=== PATIENT | female | born 1950 | race Two or more races ===

== ENCOUNTER 2017-10-02 22:08 | Emergency (ER) | payer OTHER ==
[~2017-10-02] VITALS: Ht 154.9 cm; Wt 83.9 kg
[~2017-10-02 22:08] MED LIST: ASPI-498 PO; ATEN-60 PO; ATOR40TA52 PO; CLOP75TA28 PO; FLUO60TA PO; GABA300C10 PO; LIS5T PO; MIRT30TA PO; NITR0.4S29 SL
[2017-10-02 22:42] LABS: Basophils # (auto) 0 uL; Basophils % (auto) 0.4 % (0.0-2.0); Eosinophils # (auto) 0.1 uL; Eosinophils % (auto) 0.6 % (0.0-7.0); Hematocrit 34.3 % (36.0-46.0); Hemoglobin 11.6 g/dL (12.2-16.2); Lymphocytes # (auto) 2.7 uL; Lymphocytes % (auto) 31.9 % (10.0-50.0); Mean Corpuscular Hemoglobin 31.6 pg (28.0-32.0); Mean Corpuscular Hgb Conc. 33.8 g/dL (32.0-36.0); Mean Corpuscular Volume 93.2 fL (80.0-100.0); Monocytes # (auto) 0.5 uL; Monocytes % (auto) 5.8 % (0.0-12.0); Neutrophils # (auto) 5.1 uL; Neutrophils % (auto) 61.3 % (37.0-80.0); Nucleated Red Blood Cells % 0.1 %; Platelet Count (auto) 245 10^3/uL (140-450); Red Blood Cells 3.68 10^6/uL (4.0-5.20); Red Cell Distribution Width 12.1 % (11.8-14.3); White Blood Cell 8.3 10^3/uL (4.4-10.8)
[2017-10-02 23:02] LABS: Alanine Aminotransferase 37 U/L (13-56); Albumin 2.9 g/dL (3.4-5.0); Anion Gap 10 (5-15); Aspartate Aminotransferase 31 U/L (15-37); BUN/Creatinine Ratio 19.5; Blood Urea Nitrogen 29 mg/dL (7-18); Calcium 8.7 mg/dL (8.5-10.1); Carbon Dioxide 22 mmol/L (21-32); Chloride 103 mmol/L (98-107); GFR African American 45 mL/min; GFR Non-African American 37 mL/min; Magnesium 1.8 mg/dL (1.6-2.6); Potassium 4.1 mmol/L (3.5-5.1); Sodium 135 mmol/L (136-145)
[2017-10-02 23:03] LABS: Acetaminophen < 2.0 ug/mL (10-30); Salicylate < 1.7 mg/dL (2.8-20.0)
[2017-10-02 23:06] LABS: Alkaline Phosphatase 116 U/L (45-117); Bilirubin, Total 0.3 mg/dL (0.2-1.0); Total Protein 7.2 g/dL (6.4-8.2)
[2017-10-02 23:09] LABS: Glucose 457 mg/dL (74-106)
[2017-10-02] MEDS ORDERED: InsuLIN REG 1unit/0.01ml Soln (100units/ml) IV ONE (23:15)
[2017-10-03 00:14] LABS: Urine Bacteria FEW /hpf (None Seen); Urine Blood TRACE /uL (Negative); Urine Hyaline Cast FEW /lpf (0 - 2); Urine Mucus FEW (None Seen); Urine Specific Gravity 1.022 (1.001-1.035); Urine WBC 224 /hpf (0 - 5)
[2017-10-03 00:27] LABS: Alcohol, Urine < 3.0 mg/dL (0-5); Amphetamine Screen, Urine NEGATIVE (NEGATIVE); Barbiturate Scree,Urine NEGATIVE (NEGATIVE); Benzodiazephine Screen, Urine NEGATIVE (NEGATIVE); Cannabinoid Screen, Urine NEGATIVE (NEGATIVE); Cocaine Screen, Urine NEGATIVE (NEGATIVE); Opiate Scree,Urine NEGATIVE (NEGATIVE); Phencyclidine Screen, Urine NEGATIVE (NEGATIVE)
[2017-10-03] MEDS ORDERED: InsuLIN REG 1unit/0.01ml Soln (100units/ml) IV ONE (04:30)
[2017-10-03] MEDS ORDERED: SODIUM CHLORIDE 0.9% 1,000 ML IV ONE (05:00)
[2017-10-03 07:40] VITALS: BP 122/52
== END 2017-10-03 09:59 | disposition home or self-care (01) ==
LOC: ER 22:08 → EDBD 22:08 → ER 10-03 09:59
DX: E11.65 Type 2 diabetes mellitus with hyperglycemia (principal); N39.0 Urinary tract infection, site not specified; I25.10 Atherosclerotic heart disease of native coronary artery without angina pectoris; N18.9 Chronic kidney disease, unspecified; E11.22 Type 2 diabetes mellitus with diabetic chronic kidney disease; E78.5 Hyperlipidemia, unspecified; I12.9 Hypertensive chronic kidney disease with stage 1 through stage 4 chronic kidney disease, or unspecified chronic kidney disease; I25.2 Old myocardial infarction; Z90.49 Acquired absence of other specified parts of digestive tract; Z79.899 Other long term (current) drug therapy; Z98.61 Coronary angioplasty status; R42 Dizziness and giddiness
CPT/HCPCS: 36415; 70450; 80053; 80307; 80329; 81001; 82962; 83735; 84484; 85025; 93005; 94761; 96361; 96374; 96376; 99285; J1815

== ENCOUNTER 2019-03-18 20:07 | Inpatient (IN) | payer OTHER ==
[~2019-03-18] VITALS: Ht 154.9 cm; Wt 87.2 kg
[2019-03-18 20:58] LABS: Basophils # (auto) 0 uL; Basophils % (auto) 0.4 % (0.0-2.0); Eosinophils # (auto) 0 uL; Eosinophils % (auto) 0.4 % (0.0-7.0); Lymphocytes # (auto) 1.3 uL; Lymphocytes % (auto) 18.6 % (10.0-50.0); Mean Corpuscular Hemoglobin 30.5 pg (28.0-32.0); Mean Corpuscular Hgb Conc. 34.5 g/dL (32.0-36.0); Mean Corpuscular Volume 88.6 fL (80.0-100.0); Monocytes # (auto) 0.4 uL; Monocytes % (auto) 5.5 % (0.0-12.0); Neutrophils # (auto) 5.3 uL; Neutrophils % (auto) 75.1 % (37.0-80.0); Platelet Count (auto) 288 10^3/uL (140-450); Red Blood Cells 3.61 10^6/uL (4.0-5.20); Red Cell Distribution Width 12.7 % (11.8-14.3)
[2019-03-18 21:15] LABS: Urine WBC None Seen /hpf (0 - 5)
[2019-03-18 21:16] LABS: Alanine Aminotransferase 33 U/L (13-56); Albumin 3.4 g/dL (3.4-5.0); Anion Gap 6 (5-15); Aspartate Aminotransferase 22 U/L (15-37); Blood Urea Nitrogen 24 mg/dL (7-18); Calcium 9.2 mg/dL (8.5-10.1); Carbon Dioxide 28 mmol/L (21-32); Chloride 101 mmol/L (98-107); GFR African American 44 mL/min; GFR Non-African American 37 mL/min; Glucose 371 mg/dL (74-106); Magnesium 1.5 mg/dL (1.6-2.6); Potassium 4.7 mmol/L (3.5-5.1); Sodium 135 mmol/L (136-145)
[2019-03-18 21:21] LABS: Alkaline Phosphatase 120 U/L (45-117); Bilirubin, Total 0.9 mg/dL (0.2-1.0); Total Protein 7.8 g/dL (6.4-8.2)
[2019-03-18 21:35] LABS: Urine Bacteria NONE SEEN /hpf (None Seen); Urine Blood Negative /uL (Negative); Urine Specific Gravity 1.013 (1.001-1.035)
[2019-03-18] MEDS ORDERED: ONDANSETRON HCL 4 MG/2 ML VIAL IV ONE (22:45)
[2019-03-18] MEDS ORDERED: InsuLIN REG 1unit/0.01ml Soln (100units/ml) IV ONE (22:45)
[2019-03-19] VITALS (7 sets, daily range): BP systolic 95–119; BP diastolic 44–63
[2019-03-19] MEDS ORDERED: SODIUM CHLORIDE 0.9% 500 ML IV ONE (00:30)
[2019-03-19] MEDS ORDERED: MECLIZINE HCL 25 MG TAB PO ONE (01:30)
[2019-03-19] MEDS ORDERED: TEMAZEPAM 15 MG CAP PO PRN (02:30)
[2019-03-19] MEDS ORDERED: MECLIZINE HCL 25 MG TAB PO PRN (02:30)
[2019-03-19] MEDS ORDERED: DEXTROSE (50%) 50ML SYRG IV PRN (02:30)
[2019-03-19] MEDS: MAGNESIUM SULFATE 1GM/100ML 100 ML IV SCH ×2 (03:27→04:23)
--- NOTE | 2019-03-19 05:15 | NUR ---
PATIENT WAS ADMITTED TO MED SURG UNIT FROM THE EMERGENCY ROOM. PATIENT COMPLAINS OF GENERALIZED MILD PAIN. SHE IS ON ROOM AIR. NORMALLY SHE IS ABLE TO AMBULATE INDEPENDENTLY BUT UNABLE TO DO SO CURRENTLY DUE TO DIZZINESS. BED IS LOCKED IN LOWEST POSITION AND SIDE RAILS UP X2. CALL LIGHT IS WITHIN REACH. WILL CONTINUE TO MONITOR.
[2019-03-19] MEDS ORDERED: OMEP20TA PO (05:17)
[2019-03-19] MEDS ORDERED: METF-370 PO (05:20)
[2019-03-19] MEDS ORDERED: METO25TA62 PO (05:20)
[2019-03-19] MEDS ORDERED: ROSU40TA PO (05:20)
[2019-03-19] MEDS: ACCU-CHEK COMFORT CURVE STRIP VI SCH ×4 (06:32→23:59)
[2019-03-19] MEDS: InsuLIN REG 1unit/0.01ml Soln (100units/ml) SC SCH ×3 (06:33→18:22)
--- NOTE | 2019-03-19 07:45 | NUR ---
Opening Shift Note Assumed care of patient, awake and alert. No S/S of distress/SOB or pain. Bed is in lowest position with 2x side rails up fpr safety, and call light is within reach. Instructed on POC and to call for assist PRN, will continue to monitor for changes Q1hr and PRN.
[2019-03-19] MEDS: ONDANSETRON HCL 4 MG/2 ML VIAL IV PRN ×2 (08:59→14:43)
[2019-03-19] MEDS: CLOPIDOGREL BISULFATE 75 MG TAB PO SCH (09:03)
[2019-03-19] MEDS: ASPirin 81 mg TAB PO SCH (09:03)
[2019-03-19] MEDS: FLUoxetine HCL 20 MG CAP PO SCH (09:03)
[2019-03-19] MEDS: PANTOPRAZOLE 40 MG TAB PO SCH (09:03)
[2019-03-19] MEDS: ATENOLOL 25 MG TAB PO SCH (09:04)
--- NOTE | 2019-03-19 11:08 | NUR ---
PAGED Paged Dr. Church per patient's request for pain medication. C/O sciatic pain 8/10 on adult pain scale. Patient given heat pad to help alleviate some pain. Awaiting call back from .
--- NOTE | 2019-03-19 12:55 | NUR ---
Family updated on pt status Sai Karmen at bedside. Updated on patient's status and condition. All questions and concerns addressed. Daughter would like to be updated by phone if patient is to be discharged or kept another night.
[2019-03-19] MEDS ORDERED: IOHEXOL 300 MG/ML 100ML BOTTLE IJ ONE (15:15)
--- NOTE | 2019-03-19 15:33 | NUR ---
AT BEDSIDE Dr. Church at patient's bedside. Diabetic education/blood glucose control discussed in detail, patient verbalized understanding.
[2019-03-19] MEDS: INSULIN 70/30 1unit/0.01ml Susp (100units/ml) SC SCH (18:23)
[2019-03-19] MEDS: MECLIZINE HCL 25 MG TAB PO SCH ×2 (18:23→23:52)
--- NOTE | 2019-03-19 19:19 | NUR ---
CLOSING NOTE Endorsed care of patient to NOC RNDwayne.
[2019-03-19] MEDS: ATORVASTATIN 20 MG TAB PO SCH (21:44)
[2019-03-19] MEDS: MIRTAZAPINE 30 MG TAB PO SCH (21:45)
[2019-03-19] MEDS ORDERED: IBUPROFEN 600 MG TAB PO ONE (22:00)
[2019-03-20] MEDS ORDERED: ALBUMIN 5% 250 ML IV ONE (05:15)
[2019-03-20 05:33] VITALS: BP_SYST 78; BP_SYST 84; BP_DIAS 34; BP_DIAS 41
[2019-03-20] MEDS: InsuLIN REG 1unit/0.01ml Soln (100units/ml) SC SCH ×4 (05:40→19:02)
[2019-03-20] MEDS: ACCU-CHEK COMFORT CURVE STRIP VI SCH ×3 (05:41→19:03)
[2019-03-20 06:32] LABS: Calcium 8.6 mg/dL (8.5-10.1); Magnesium 1.9 mg/dL (1.6-2.6); Potassium 3.7 mmol/L (3.5-5.1)
[2019-03-20 06:45] LABS: BUN/Creatinine Ratio 14.5
[2019-03-20 08:00] VITALS: BP 109/56
[2019-03-20] MEDS: INSULIN 70/30 1unit/0.01ml Susp (100units/ml) SC SCH ×2 (08:00→19:02)
--- NOTE | 2019-03-20 08:00 | NUR ---
ASSESSMENT NOTE PATIENT IS ALERT ORIENTED X4, RESTING IN BED COMFORTABLY, NO DISTRESS NOTED, ABLE TO SELF REPOSITION AND VERBALIS HIS NEEDS, CONTINUE FEELING DIZZY, FALL RISK PRECAUTIONS, CALL LIGHT WITHIN REACH
[2019-03-20] MEDS: MECLIZINE HCL 25 MG TAB PO SCH ×2 (08:41→15:37)
[2019-03-20] MEDS: ATENOLOL 25 MG TAB PO SCH (08:42)
[2019-03-20] MEDS: CLOPIDOGREL BISULFATE 75 MG TAB PO SCH (08:52)
[2019-03-20] MEDS: ASPirin 81 mg TAB PO SCH (08:52)
[2019-03-20] MEDS: PANTOPRAZOLE 40 MG TAB PO SCH (08:53)
[2019-03-20] MEDS: FLUoxetine HCL 20 MG CAP PO SCH (08:53)
[2019-03-20 09:00] VITALS: BP 130/59
[2019-03-20] MEDS: ACETAMINOPHEN 325 MG TAB PO PRN ×2 (10:26→20:49)
[2019-03-20 13:00] VITALS: BP 130/54
--- NOTE | 2019-03-20 13:41 | NUR ---
DR VAZQUEZ AT BED SIDE FOLLOWING UP ON PT.
[2019-03-20] MEDS ORDERED: GABAPENTIN 100 MG CAP PO ONE (13:45)
[2019-03-20] MEDS ORDERED: HYDROcodone-ACET 5/325MG TAB PO PRN (13:45)
[2019-03-20 17:00] VITALS: BP_SYST 0; BP_SYST 132; BP_DIAS 52
--- NOTE | 2019-03-20 17:00 | NUR ---
PT CONTINUE FEELING DIZZY, BLOOD PRESSURE CONTINUE IMPROVING
[2019-03-20] MEDS ORDERED: metFORMIN HYDROCHLORIDE 500 MG TAB PO SCH (18:00)
--- NOTE | 2019-03-20 18:30 | NUR ---
PT CONTINUE STABLE, CONTINUE MONITORING
--- NOTE | 2019-03-20 19:40 | NUR ---
Opening Shift Note Assumed care of patient, awake and alert. No S/S of distress/SOB or pain. Instructed on POC and to call for assist PRN, will continue to monitor for changes Q1hr and PRN.
[2019-03-20] MEDS: MIRTAZAPINE 30 MG TAB PO SCH (21:43)
[2019-03-20] MEDS: ATORVASTATIN 20 MG TAB PO SCH (21:43)
[2019-03-20] MEDS: GABAPENTIN 100 MG CAP PO SCH (21:43)
[2019-03-20 22:00] VITALS: BP_SYST 134; BP_SYST 136; BP_SYST 31; BP_DIAS 66
[2019-03-21] MEDS: MECLIZINE HCL 25 MG TAB PO SCH ×4 (00:28→23:45)
[2019-03-21] MEDS: ACCU-CHEK COMFORT CURVE STRIP VI SCH ×5 (00:29→23:46)
[2019-03-21] MEDS: InsuLIN REG 1unit/0.01ml Soln (100units/ml) SC SCH ×5 (00:29→23:46)
[2019-03-21 05:31] VITALS: BP 91/40
[2019-03-21 08:00] VITALS: BP_SYST 126; BP_SYST 130; BP_DIAS 53; BP_DIAS 59
--- NOTE | 2019-03-21 08:00 | NUR ---
ASSESSMENT NOTE PATIENT IS ALERT ORIENTED X4, RESTING IN BED COMFORTABLY, NO DISTRESS NOTED, STATED < MY DIZZINESS IS MUCH BETTER TODAY>, PAIN 0/10, ABLE TO USE THE BED SIDE COMMODE NEEDED, CALL LIGHT WITHIN REACH.
[2019-03-21] MEDS: INSULIN 70/30 1unit/0.01ml Susp (100units/ml) SC SCH ×2 (08:20→18:08)
[2019-03-21] MEDS: CLOPIDOGREL BISULFATE 75 MG TAB PO SCH (09:15)
[2019-03-21] MEDS: GABAPENTIN 100 MG CAP PO SCH ×2 (09:15→21:49)
[2019-03-21] MEDS: FLUoxetine HCL 20 MG CAP PO SCH (09:16)
[2019-03-21] MEDS: PANTOPRAZOLE 40 MG TAB PO SCH (09:16)
[2019-03-21] MEDS: ATENOLOL 25 MG TAB PO SCH (10:00)
[2019-03-21 13:30] VITALS: BP 126/53
--- NOTE | 2019-03-21 14:00 | NUR ---
OUT OF BED AMBULATING WITH PHYSICAL THERAPY, WITH FRONT WHEEL WALKER, TOLERATED WELL
[2019-03-21 17:00] VITALS: BP 122/62
--- NOTE | 2019-03-21 18:38 | NUR ---
PT CONTINUE STABLE, CONTINUE MONITORING
--- NOTE | 2019-03-21 19:05 | NUR ---
Opening Shift Note Assumed care of patient, awake and alert x4. No S/S of distress/SOB or pain. Call light is within reach, side rails up x2, bed is in lowest position. Instructed on POC and to call for assist PRN. All questions and concerns answered, will continue to monitor for changes Q1hr and PRN.
--- NOTE | 2019-03-21 20:14 | NUR ---
Patient refused to have her IV discontinued and restarted. Educated her on hospital policy, she verbalized understanding and stated, "I'm leaving tomorrow, that's okay."
[2019-03-21] MEDS: MIRTAZAPINE 30 MG TAB PO SCH (21:49)
[2019-03-21] MEDS: ATORVASTATIN 20 MG TAB PO SCH (21:49)
[2019-03-21 22:00] VITALS: BP 96/47
[2019-03-22 05:00] VITALS: BP 129/56
[2019-03-22] MEDS: ACCU-CHEK COMFORT CURVE STRIP VI SCH ×2 (05:46→11:57)
[2019-03-22] MEDS: InsuLIN REG 1unit/0.01ml Soln (100units/ml) SC SCH ×2 (05:47→11:57)
[2019-03-22 08:00] VITALS: BP 128/59
[2019-03-22] MEDS: ATENOLOL 25 MG TAB PO SCH (10:00)
[2019-03-22] MEDS: MECLIZINE HCL 25 MG TAB PO SCH ×2 (10:32→16:11)
[2019-03-22] MEDS: GABAPENTIN 100 MG CAP PO SCH (10:32)
[2019-03-22] MEDS: CLOPIDOGREL BISULFATE 75 MG TAB PO SCH (10:33)
[2019-03-22] MEDS: PANTOPRAZOLE 40 MG TAB PO SCH (10:33)
[2019-03-22] MEDS: FLUoxetine HCL 20 MG CAP PO SCH (10:34)
[2019-03-22] MEDS: INSULIN 70/30 1unit/0.01ml Susp (100units/ml) SC SCH (10:39)
[2019-03-22] MEDS ORDERED: MIRT1TAB38 PO (10:46)
[2019-03-22 12:00] VITALS: BP 135/65
[2019-03-22 17:00] VITALS: BP 121/54
[2019-03-22 17:43] VITALS: BP 121/54
--- NOTE | 2019-03-22 18:06 | NUR ---
Discharge instructions given as ordered. Encourage to follow up with PMD as instructed. All questions and concerns addressed. Patient verbalized understanding. IV removed with catheter intact, pressure dressing applied. Patient taken to vehicle via wheelchair with all personal belongings, accompanied by staff and family member. No distress noted at time of departure.
== END 2019-03-22 18:06 | disposition home or self-care (01) | DRG 637 ==
LOC: ER 20:09 → OVERFLOW 20:10 → EAST 03-19 04:55
PROVIDERS: ADMIT Nurse Practitioner; ATTEND Internal Medicine Geriatric Medicine
DX: E11.65 Type 2 diabetes mellitus with hyperglycemia (principal); N17.0 Acute kidney failure with tubular necrosis; H81.10 Benign paroxysmal vertigo, unspecified ear; E86.0 Dehydration; I10 Essential (primary) hypertension; I25.10 Atherosclerotic heart disease of native coronary artery without angina pectoris; K21.9 Gastro-esophageal reflux disease without esophagitis; M79.604 Pain in right leg; E11.22 Type 2 diabetes mellitus with diabetic chronic kidney disease; E11.40 Type 2 diabetes mellitus with diabetic neuropathy, unspecified; E66.9 Obesity, unspecified; Z68.36 Body mass index [BMI] 36.0-36.9, adult; I12.9 Hypertensive chronic kidney disease with stage 1 through stage 4 chronic kidney disease, or unspecified chronic kidney disease; E78.5 Hyperlipidemia, unspecified; N18.9 Chronic kidney disease, unspecified; Z79.4 Long term (current) use of insulin; Z82.49 Family history of ischemic heart disease and other diseases of the circulatory system; Z83.3 Family history of diabetes mellitus; I25.2 Old myocardial infarction; Z90.49 Acquired absence of other specified parts of digestive tract
CPT/HCPCS: 36415; 70450; 70551; 71045; 80048; 80053; 81001; 82962; 83036; 83735; 83880; 84484; 85025; 93005; 96365; 96367; 96375; 97116; 97163; 97530; G0378; J1815; J2405

== ENCOUNTER 2019-04-09 12:01 | Inpatient (IN) | payer OTHER ==
[~2019-04-09] VITALS: Ht 154.9 cm; Wt 85.1 kg
[~2019-04-09 12:01] MED LIST changes: -ASPI-498 PO; -ATEN-60 PO; -ATOR40TA52 PO; -FLUO60TA PO; -LIS5T PO; +METF-370 PO; +METO25TA62 PO; +MIRT1TAB38 PO; -MIRT30TA PO; +OMEP20TA PO; +ROSU40TA PO
[2019-04-09 12:58] LABS: Basophils # (auto) 0.1 uL; Basophils % (auto) 0.6 % (0.0-2.0); Eosinophils # (auto) 0 uL; Eosinophils % (auto) 0.2 % (0.0-7.0); Hematocrit 30.9 % (36.0-46.0); Hemoglobin 10.3 g/dL (12.2-16.2); Lymphocytes # (auto) 1.4 uL; Lymphocytes % (auto) 9.9 % (10.0-50.0); Mean Corpuscular Hemoglobin 30.6 pg (28.0-32.0); Mean Corpuscular Hgb Conc. 33.3 g/dL (32.0-36.0); Mean Corpuscular Volume 91.8 fL (80.0-100.0); Monocytes # (auto) 0.7 uL; Monocytes % (auto) 4.9 % (0.0-12.0); Neutrophils % (auto) 84.4 % (37.0-80.0); Platelet Count (auto) 308 10^3/uL (140-450); Red Blood Cells 3.37 10^6/uL (4.0-5.20); Red Cell Distribution Width 12.8 % (11.8-14.3); White Blood Cell 14.3 10^3/uL (4.4-10.8)
[2019-04-09 13:14] LABS: Potassium 3.8 mmol/L (3.5-5.1)
[2019-04-09 13:15] LABS: Albumin 2.8 g/dL (3.4-5.0); BUN/Creatinine Ratio 17.2; Calcium 8.9 mg/dL (8.5-10.1)
[2019-04-09 13:17] LABS: Bilirubin, Total 0.5 mg/dL (0.2-1.0)
[2019-04-09] MEDS ORDERED: SODIUM CHLORIDE 0.9% 1,000 ML IV ONE ×2 (13:53)
[2019-04-09] MEDS ORDERED: PIPERACILLIN-TAZOB 3.375GM 100 ML IV ONE (14:00)
[2019-04-09] MEDS ORDERED: DOXY100C2 (18:08)
[2019-04-09] MEDS ORDERED: ROSU1TAB15 (18:08)
[2019-04-09] MEDS ORDERED: LEVO-28 (18:08)
[2019-04-09] MEDS ORDERED: MECL-87 (18:08)
[2019-04-09] MEDS ORDERED: INS7030I (18:08)
[2019-04-09] MEDS ORDERED: CLOP75TA41 (18:08)
[2019-04-09] MEDS ORDERED: VANCOMYCIN PER PHARMACY 0 MG IV SCH (19:45)
[2019-04-09] MEDS ORDERED: DEXTROSE (50%) 50ML SYRG IV PRN (19:45)
[2019-04-09] MEDS ORDERED: NITROGLYCERIN 0.4 MG SL TAB SL PRN (19:45)
[2019-04-09] MEDS ORDERED: MORPHINE SULF INJ 2 MG/ML SYRINGE 1ML IV PRN (19:45)
[2019-04-09] MEDS ORDERED: VANCOMYCIN 750mg/250ml 250 ML IV ONE (20:15)
--- NOTE | 2019-04-09 20:45 | NUR ---
Telemetry admit from ER ELVRIA CASANOVA admitted to Telemetry unit after SBAR received. Patient oriented to ESDRAS DING O[facility], primary RN, unit, room, bed, and unit policies regarding patient care and visiting hours. Per [employer]SEM[employer], wound pictures taken in ER and would left open to air to drain. Patient now on continuous telemetry monitoring, tele box #28 and telemetry reading on arrival to unit is sinus tachycardia. Patient weighed by bedscale and encouraged to call if they need something. All questions and concerns addressed, patient verbalized understanding. Bed in lowest locked position, call light within reach, side rails up x2, fall precations in place. Will continue to monitor Q1hr and PRN.
[2019-04-09 20:47] LABS: Cholesterol 128 mg/dL (< 200); Triglycerides 131 mg/dL (< 150)
[2019-04-09 20:51] LABS: HDL Cholesterol 34 mg/dL (40-59); LDL Cholesterol 81 mg/dL (< 100)
[2019-04-09] MEDS: SODIUM CHLORIDE 0.9% 1,000 ML IV SCH (21:07)
[2019-04-09] MEDS: InsuLIN REG 1unit/0.01ml Soln (100units/ml) SC SCH (21:49)
[2019-04-09] MEDS: ACCU-CHEK COMFORT CURVE STRIP VI SCH (21:49)
--- NOTE | 2019-04-09 22:00 | NUR ---
Hospitalist paged YANY king called regarding patient requesting pain medication. Waiting for call back. Continue care.
--- NOTE | 2019-04-09 22:48 | NUR ---
Hospitalist returned call YANY Lyles returned call, updated on patient status and reason for call, new orders received. Continue care.
[2019-04-09 23:00] VITALS: BP 122/52
[2019-04-09] MEDS: HYDROcodone-ACET 5/325MG TAB PO PRN (23:01)
[2019-04-10] MEDS: SODIUM CHLORIDE 0.9% 1,000 ML IV SCH ×3 (03:45→18:16)
[2019-04-10 05:00] VITALS: BP 113/55
[2019-04-10 06:15] LABS: Basophils # (auto) 0 uL; Basophils % (auto) 0.2 % (0.0-2.0); Eosinophils # (auto) 0.1 uL; Eosinophils % (auto) 0.7 % (0.0-7.0); Hemoglobin 9.3 g/dL (12.2-16.2); Lymphocytes # (auto) 1.7 uL; Lymphocytes % (auto) 13.2 % (10.0-50.0); Mean Corpuscular Hemoglobin 30.3 pg (28.0-32.0); Mean Corpuscular Hgb Conc. 33.1 g/dL (32.0-36.0); Mean Corpuscular Volume 91.5 fL (80.0-100.0); Monocytes # (auto) 0.8 uL; Monocytes % (auto) 6.8 % (0.0-12.0); Neutrophils # (auto) 9.9 uL; Neutrophils % (auto) 79.1 % (37.0-80.0); Nucleated Red Blood Cells % 0.1 %; Platelet Count (auto) 263 10^3/uL (140-450); Red Blood Cells 3.06 10^6/uL (4.0-5.20); Red Cell Distribution Width 12.6 % (11.8-14.3); White Blood Cell 12.5 10^3/uL (4.4-10.8)
[2019-04-10 06:19] LABS: Albumin 2.3 g/dL (3.4-5.0); Calcium 8.3 mg/dL (8.5-10.1); Potassium 3.8 mmol/L (3.5-5.1)
[2019-04-10 06:23] LABS: BUN/Creatinine Ratio 22.7; Bilirubin, Total 0.4 mg/dL (0.2-1.0); Total Protein 7.1 g/dL (6.4-8.2)
[2019-04-10] MEDS: ACCU-CHEK COMFORT CURVE STRIP VI SCH ×4 (06:53→21:43)
[2019-04-10] MEDS: InsuLIN REG 1unit/0.01ml Soln (100units/ml) SC SCH ×4 (06:54→21:44)
--- NOTE | 2019-04-10 06:58 | NUR ---
Hospitalist paged Hospitalist called regarding patient requesting nausea medication. Waiting for call back. Continue care.
--- NOTE | 2019-04-10 07:03 | NUR ---
Hospitalist returned call BILLBOARD MECHANIC Rafal returned call, updated on patient status and reason for call, new orders received and read back for verification. Continue care.
[2019-04-10] MEDS ORDERED: ONDANSETRON HCL 4 MG/2 ML VIAL IV PRN (07:15)
--- NOTE | 2019-04-10 07:30 | NUR ---
Opening Shift Note Assumed care of patient, awake and alert. No S/S of distress/SOB or pain. Instructed on POC and to call for assist PRN. Bed in lowest locked position, call light within reach, side rails up x2. Will continue to monitor for changes Q1hr and PRN
[2019-04-10 09:00] VITALS: BP 131/60
[2019-04-10] MEDS: cefTRIAXone 1GM/50ML D5W 50 ML IV SCH (09:35)
[2019-04-10] MEDS ORDERED: FOLIC ACID 1 MG, MULTIPLE VITAMIN 10 ML, MAGNESIUM SULF SDV 50% 8 MEQ, THIAMINE INJ 100... INJ SCH ×5 (12:00)
[2019-04-10] MEDS ORDERED: VANCOMYCIN 750mg/250ml 250 ML IV SCH (12:00)
[2019-04-10 13:00] VITALS: BP 111/55
[2019-04-10 15:14] LABS: INR 1.22 (0.9-1.15); Partial Thromboplastin Time 36.6 sec (23.64-32.05)
--- NOTE | 2019-04-10 15:58 | NUR ---
WOUND CARE NOTE: Wound care consult received for upper back abscess. Patient is a 68yo female admitted for sepsis. Patient has a history of diabetes, CAD with stents, hyperlipidemia, and HTN. Patient is alert and denies pain. Last Dario score is 16. Patient with an abscess to right upper back/scapula area that measures 1x0.5cm. Patient previously went to urgent care and had the wound lanced and was prescribed oral antibiotics. When returning for a wound check she was sent to ER. Discussed with bedside RN, Denise. Plan for patient to have surgery tomorrow (04/11) with Dr Alejo. Wound cleanse and covered with OPTIFOAM GENTLE dressing. RECOMMENDATIONS: Dietary consult; Nursing to cleanse abscess with NS, pat dry, cover with OPTIFOAM GENTLE, change every other day and PRN; further dressing change orders per surgeon; no further need by wound care team.
[2019-04-10 17:00] VITALS: BP 116/51
[2019-04-10] MEDS: LINEZOLID 600MG/300ML 300 ML IV SCH (18:15)
--- NOTE | 2019-04-10 19:30 | NUR ---
Opening Shift Note Assumed care of patient, awake and alert. No S/S of distress/SOB or pain. Instructed on POC and to call for assist PRN. Bed in lowest locked position, call light within reach, side rails up x2, fall precautions in place. Will continue to monitor for changes Q1hr and PRN.
[2019-04-10 20:07] LABS: Urine Bacteria FEW /hpf (None Seen); Urine Blood Negative /uL (Negative); Urine Mucus FEW (None Seen); Urine Specific Gravity 1.018 (1.001-1.035); Urine WBC 2 /hpf (0 - 5)
[2019-04-10 22:00] VITALS: BP 105/47
[2019-04-11] MEDS: HYDROcodone-ACET 5/325MG TAB PO PRN (01:45)
[2019-04-11] MEDS: SODIUM CHLORIDE 0.9% 1,000 ML IV SCH ×3 (03:45→21:13)
[2019-04-11 05:44] VITALS: BP 122/55
[2019-04-11] MEDS: InsuLIN REG 1unit/0.01ml Soln (100units/ml) SC SCH ×5 (06:28→21:13)
[2019-04-11] MEDS: ACCU-CHEK COMFORT CURVE STRIP VI SCH ×4 (06:28→21:13)
[2019-04-11] MEDS: LINEZOLID 600MG/300ML 300 ML IV SCH ×2 (06:28→18:08)
[2019-04-11 06:49] LABS: Basophils # (auto) 0 uL; Basophils % (auto) 0.3 % (0.0-2.0); Eosinophils # (auto) 0.1 uL; Eosinophils % (auto) 1.6 % (0.0-7.0); Hematocrit 28.2 % (36.0-46.0); Hemoglobin 9.4 g/dL (12.2-16.2); Lymphocytes # (auto) 2.1 uL; Lymphocytes % (auto) 24.4 % (10.0-50.0); Mean Corpuscular Hemoglobin 30.6 pg (28.0-32.0); Mean Corpuscular Hgb Conc. 33.2 g/dL (32.0-36.0); Mean Corpuscular Volume 92.3 fL (80.0-100.0); Monocytes # (auto) 0.5 uL; Monocytes % (auto) 5.6 % (0.0-12.0); Neutrophils % (auto) 68.1 % (37.0-80.0); Platelet Count (auto) 283 10^3/uL (140-450); Red Blood Cells 3.06 10^6/uL (4.0-5.20); Red Cell Distribution Width 12.5 % (11.8-14.3); White Blood Cell 8.8 10^3/uL (4.4-10.8)
[2019-04-11 07:02] LABS: INR 1.21 (0.9-1.15); Partial Thromboplastin Time 36.2 sec (23.64-32.05)
[2019-04-11 07:06] LABS: Calcium 8.6 mg/dL (8.5-10.1); Potassium 3.9 mmol/L (3.5-5.1)
[2019-04-11 07:08] LABS: BUN/Creatinine Ratio 21.3
--- NOTE | 2019-04-11 07:28 | NUR ---
Opening Shift Note Assumed care of patient, awake and alert x2. No S/S of distress/SOB or pain. Instructed on POC and to call for assist PRN. Family at bedside. Bed in lowest locked position, call light within reach, side rails up x2, fall precautions in place. Will continue to monitor for changes Q1hr and PRN.
--- NOTE | 2019-04-11 08:15 | NUR ---
PT OFF UNIT PT BROUGHT DOWN TO PRE-OP. NO DISTRESS NOTED AT TIME OF DEPARTURE
[2019-04-11] MEDS ORDERED: PHENYLEPHRINE HCL 10 MG/ML VL IV ONE (08:35)
[2019-04-11] MEDS ORDERED: METOCLOPRAMIDE HCL 5MG/ml INJ 2ml VIAL IV ONE (08:35)
[2019-04-11] MEDS ORDERED: KETOROLAC TROMETH 30 MG/ML 1ML VIAL IV ONE (08:45)
[2019-04-11] MEDS ORDERED: MIDAZOLAM HCL 1MG/1ML-2 ML VIAL IV PRN (08:45)
[2019-04-11] MEDS ORDERED: ONDANSETRON HCL 4 MG/2 ML VIAL IV PRN (08:45)
[2019-04-11] MEDS ORDERED: MORPHINE SULFATE 4 MG/ML SYR/VIAL IV PRN (08:45)
[2019-04-11] MEDS ORDERED: ACCU-CHEK COMFORT CURVE STRIP VI ONE (08:45)
[2019-04-11] MEDS ORDERED: ePHEDrine SULFATE 50 MG/ML AMP IV PRN (08:45)
[2019-04-11] MEDS ORDERED: HYDROmorphone HCL 2 MG/ML VL IV PRN (08:45)
[2019-04-11] MEDS ORDERED: LABETALOL HCL 5 MG/ML 4ML SYRINGE IV PRN (08:45)
[2019-04-11] MEDS ORDERED: fentaNYL CITRATE 100 MCG/2 ML VL ONE (08:49)
[2019-04-11] MEDS ORDERED: MIDAZOLAM HCL 1MG/1ML-2 ML VIAL ONE (08:49)
[2019-04-11 09:00] VITALS: BP 130/62
[2019-04-11] MEDS: cefTRIAXone 1GM/50ML D5W 50 ML IV SCH (09:00)
[2019-04-11] MEDS ORDERED: PROPOFOL 10 MG/ML 20 ML IV ONE (09:01)
--- NOTE | 2019-04-11 11:25 | NUR ---
PT ARRIVAL FRO PACU PT AWAKE AND ALERT X4. DRESSING CDI. NO S/S OF DISTRESS AT THIS TIME.
[2019-04-11 13:00] VITALS: BP 131/60
--- NOTE | 2019-04-11 14:19 | NUR ---
IV REMOVAL AND INSERTION IV REMOVAL IV DC'd with clean sterile technique, catheter fully intact. Pressure dressing applied to site. Patient tolerated well. IV insertion IV access obtained, via clean sterile technique by inserting 22 gauge catheter at left forearm after 1 attempt. IV secured properly. No trauma to site. Patient tolerated well.
[2019-04-11 17:00] VITALS: BP 117/60
--- NOTE | 2019-04-11 19:15 | NUR ---
Opening Shift Note Assumed care of patient, awake and alert. No S/S of distress/SOB or pain. Instructed on POC and to call for assist PRN, will continue to monitor for changes Q1hr and PRN. Side rails up x2. Bed locked in lowest position. Call light within reach.
[2019-04-11 22:00] VITALS: BP 139/58
--- NOTE | 2019-04-12 02:16 | NUR ---
Rounds Patient in bed asleep with no signs of distress/sob/pain. Will continue to monitor Q1HPRN.
[2019-04-12 04:57] LABS: Basophils # (auto) 0 uL; Basophils % (auto) 0.6 % (0.0-2.0); Eosinophils # (auto) 0.2 uL; Eosinophils % (auto) 2.2 % (0.0-7.0); Hematocrit 27.7 % (36.0-46.0); Hemoglobin 9.3 g/dL (12.2-16.2); Lymphocytes # (auto) 2.7 uL; Lymphocytes % (auto) 32.6 % (10.0-50.0); Mean Corpuscular Hemoglobin 30.7 pg (28.0-32.0); Mean Corpuscular Hgb Conc. 33.4 g/dL (32.0-36.0); Mean Corpuscular Volume 91.8 fL (80.0-100.0); Monocytes # (auto) 0.5 uL; Monocytes % (auto) 6.1 % (0.0-12.0); Neutrophils # (auto) 4.8 uL; Neutrophils % (auto) 58.5 % (37.0-80.0); Platelet Count (auto) 304 10^3/uL (140-450); Red Blood Cells 3.02 10^6/uL (4.0-5.20); Red Cell Distribution Width 12.5 % (11.8-14.3); White Blood Cell 8.2 10^3/uL (4.4-10.8)
[2019-04-12 05:00] VITALS: BP 134/64
[2019-04-12] MEDS: LINEZOLID 600MG/300ML 300 ML IV SCH (05:17)
[2019-04-12] MEDS: SODIUM CHLORIDE 0.9% 1,000 ML IV SCH ×2 (05:17→11:35)
[2019-04-12 05:38] LABS: BUN/Creatinine Ratio 14.8; Calcium 8.1 mg/dL (8.5-10.1); Magnesium 1.8 mg/dL (1.6-2.6); Potassium 3.9 mmol/L (3.5-5.1)
--- NOTE | 2019-04-12 06:00 | NUR ---
Changed dressing on right upper back. Patient tolerated well.
[2019-04-12] MEDS: ACCU-CHEK COMFORT CURVE STRIP VI SCH ×2 (06:38→11:35)
[2019-04-12] MEDS: InsuLIN REG 1unit/0.01ml Soln (100units/ml) SC SCH ×2 (06:40→11:35)
--- NOTE | 2019-04-12 07:02 | NUR ---
Endorsed care to day shift RN.
--- NOTE | 2019-04-12 08:48 | NUR ---
MD ROUNDING MD Harman [facility] AT BEDSIDE. ALL QUESTIONS AND CONCERNS ADDRESSED AT THIS TIME.
[2019-04-12 09:00] VITALS: BP 121/53
[2019-04-12] MEDS: cefTRIAXone 1GM/50ML D5W 50 ML IV SCH (09:36)
--- NOTE | 2019-04-12 12:05 | NUR ---
Nutrition consult/assessment Notes please see attached link for complete assessment Est. Needs ABW [id number] kcal (20-23 kcal/kgBW), 52-66 gms pro (0.8-1.0 gms/kgBW r/t elev RFT CKD wounds). Will continue to monitor pertinent labs and reassess nutrient need prn Addendum: 04/12/19 at [address] Amended: Links added.
[2019-04-12 13:00] VITALS: BP 116/58
--- NOTE | 2019-04-12 16:15 | NUR ---
D/C Planning Per consult for home health safety evaluation. Contacted [facility] health Ph:( [phone]) fax:) faxed medical records. Per Ebony from [facility] Pt has been accepted and service to start within 48hrs upon d/c day. Contacted [facility] Ph:) Fax:) faxed medical requesting home health authorization. Per Sara from [facility] authorization for [place] is [id number]. Addendum: 04/12/19 at 1621 by CLAIRE NOLAN Amended: Links added.
[2019-04-12 17:25] VITALS: BP 125/48
== END 2019-04-12 18:18 | disposition home health service (06) | DRG 871 ==
LOC: ER 12:19 → TELE 12:20 → TELE-CENTR 20:30
PROVIDERS: ADMIT Nurse Practitioner Acute Care; ATTEND Internal Medicine Geriatric Medicine
PROC: 0W9K0ZZ Drainage of Upper Back, Open Approach (ICD-10-PCS; principal; 2019-04-11 08:45)
DX: A41.9 Sepsis, unspecified organism (principal); N17.0 Acute kidney failure with tubular necrosis; L03.113 Cellulitis of right upper limb; E44.0 Moderate protein-calorie malnutrition; L02.212 Cutaneous abscess of back [any part, except buttock and flank]; Z95.5 Presence of coronary angioplasty implant and graft; K21.9 Gastro-esophageal reflux disease without esophagitis; I25.10 Atherosclerotic heart disease of native coronary artery without angina pectoris; E78.5 Hyperlipidemia, unspecified; E11.42 Type 2 diabetes mellitus with diabetic polyneuropathy; E11.22 Type 2 diabetes mellitus with diabetic chronic kidney disease; I12.9 Hypertensive chronic kidney disease with stage 1 through stage 4 chronic kidney disease, or unspecified chronic kidney disease; N18.9 Chronic kidney disease, unspecified; E66.9 Obesity, unspecified; Z68.35 Body mass index [BMI] 35.0-35.9, adult; Z79.02 Long term (current) use of antithrombotics/antiplatelets; Z79.4 Long term (current) use of insulin; Z79.899 Other long term (current) drug therapy; Z82.49 Family history of ischemic heart disease and other diseases of the circulatory system; Z83.3 Family history of diabetes mellitus; Z79.84 Long term (current) use of oral hypoglycemic drugs; Z90.49 Acquired absence of other specified parts of digestive tract
CPT/HCPCS: 36415; 71045; 71250; 80048; 80053; 80061; 80202; 81001; 82962; 83036; 83605; 83735; 85025; 85610; 85730; 86850; 86900; 86901; 87040; 87070; 87075; 87081; 87205; 96365; G0378; J0696; J1815; J2250; J2405; J2543; J2704

== ENCOUNTER 2019-08-24 23:01 | Inpatient (IN) | payer MEDICARE, OTHER ==
[~2019-08-24] VITALS: Ht 152.4 cm; Wt 84.0 kg
[~2019-08-24 23:01] MED LIST changes: +CLOP75TA41; +DOXY100C2; +INS7030I; +LEVO-28; +MECL25TA18; -METO25TA62 PO; +METO25TA93 PO; +ROSU1TAB15
[2019-08-25] VITALS (46 sets, daily range): BP systolic 108–195; BP diastolic 37–86
[2019-08-25] MEDS ORDERED: PANTOPRAZOLE 40 MG/10 ML VIAL INJ IV ONE
[2019-08-25] MEDS ORDERED: InsuLIN REG 1unit/0.01ml Soln (100units/ml) IV ONE
[2019-08-25 00:29] LABS: Basophils # (auto) 0 10 ^3/uL (0-0.2); Basophils % (auto) 0.2 % (0.0-2.0); Eosinophils # (auto) 0 10 ^3/uL (0-0.8); Eosinophils % (auto) 0.1 % (0.0-7.0); Hematocrit 40.6 % (36.0-46.0); Hemoglobin 12.6 g/dL (12.2-16.2); Lymphocytes # (auto) 1.1 10 ^3/uL (0.4-5.4); Lymphocytes % (auto) 6.2 % (10.0-50.0); Mean Corpuscular Hemoglobin 29.6 pg (28.0-32.0); Mean Corpuscular Hgb Conc. 31.1 g/dL (32.0-36.0); Mean Corpuscular Volume 95.1 fL (80.0-100.0); Monocytes # (auto) 0.2 10 ^3/uL (0-1.3); Monocytes % (auto) 1.1 % (0.0-12.0); Neutrophils # (auto) 16.8 10 ^3/uL (1.6-8.6); Neutrophils % (auto) 92.4 % (37.0-80.0); Platelet Count (auto) 350 10^3/uL (140-450); Red Blood Cells 4.27 10^6/uL (4.0-5.20); Red Cell Distribution Width 13.9 % (11.8-14.3); White Blood Cell 18.2 10^3/uL (4.4-10.8)
[2019-08-25 00:46] LABS: INR 1.34 (0.9-1.15); Partial Thromboplastin Time 39.1 sec (23.64-32.05)
[2019-08-25 00:49] LABS: Albumin 3.4 g/dL (3.4-5.0); Anion Gap 31 (5-15); Blood Urea Nitrogen 56 mg/dL (7-18); Calcium 10.1 mg/dL (8.5-10.1); Chloride 91 mmol/L (98-107); Potassium 5.3 mmol/L (3.5-5.1); Sodium 129 mmol/L (136-145)
[2019-08-25 00:52] LABS: Aspartate Aminotransferase 14 U/L (15-37); GFR African American 27 mL/min; GFR Non-African American 22 mL/min
[2019-08-25 00:57] LABS: Alkaline Phosphatase 144 U/L (45-117); Bilirubin, Total 0.6 mg/dL (0.2-1.0); Glucose 762 mg/dL (74-106); Total Protein 9.8 g/dL (6.4-8.2)
[2019-08-25 00:58] LABS: BUN/Creatinine Ratio 24.2; Carbon Dioxide 7 mmol/L (21-32)
[2019-08-25 01:00] LABS: Alanine Aminotransferase 19 U/L (13-56)
[2019-08-25] MEDS ORDERED: InsuLIN R (HUMAN) 100 UNITS in SODIUM CHL 0.9% 99 ML IV SCH ×3 (01:04→12:08)
[2019-08-25] MEDS ORDERED: SODIUM BICARBONATE 8.4 % INJ 50ML VIAL IV ONE (01:15)
[2019-08-25] MEDS ORDERED: PROMETHAZINE HCL 25 MG/ML 1ML IV ONE (01:15)
[2019-08-25] MEDS ORDERED: DEXTROSE (50%) 50ML SYRG IV PRN ×5 (01:15→14:00)
[2019-08-25] MEDS: ACCU-CHEK COMFORT CURVE STRIP VI SCH ×10 (01:29→20:00)
[2019-08-25] MEDS ORDERED: InsuLIN REG 1unit/0.01ml Soln (100units/ml) ONE (01:36)
[2019-08-25] MEDS: SODIUM CHLORIDE 0.9% 1,000 ML IV SCH ×6 (03:27→14:11)
[2019-08-25 04:38] LABS: Lactic Acid w/Reflex 4.1 mmol/L (0.4-2.0)
[2019-08-25] MEDS ORDERED: SODIUM CHLORIDE 0.9% 1,000 ML IV SCH (05:04)
[2019-08-25 05:21] LABS: Urine Bacteria FEW /hpf (None Seen); Urine Blood 1+ /uL (Negative); Urine Hyaline Cast FEW /lpf (0 - 2); Urine Specific Gravity 1.021 (1.001-1.035); Urine WBC 4 /hpf (0 - 5)
[2019-08-25] MEDS ORDERED: cefTRIAXone 1GM/50ML D5W 50 ML IV ONE (05:30)
[2019-08-25] MEDS ORDERED: ONDANSETRON HCL 4 MG/2 ML VIAL IV ONE ×2 (05:45)
[2019-08-25] MEDS ORDERED: DOCUSATE SOD 100 MG CAP PO PRN (07:00)
[2019-08-25] MEDS ORDERED: ACETAMINOPHEN 325 MG TAB PO PRN (07:00)
[2019-08-25] MEDS ORDERED: NITROGLYCERIN 0.4 MG SL TAB SL SCH (07:00)
[2019-08-25] MEDS ORDERED: SODIUM CHLORIDE 0.9% 1,000 ML IV ONE ×2 (07:00)
[2019-08-25] MEDS ORDERED: HYDROcodone-ACET 5/325MG TAB PO PRN (07:00)
[2019-08-25] MEDS ORDERED: NITROGLYCERIN 0.4 MG SL TAB SL PRN (07:00)
[2019-08-25] MEDS ORDERED: MORPHINE SULF INJ 2 MG/ML SYRINGE 1ML IV PRN (07:00)
[2019-08-25] MEDS ORDERED: INSULIN LANTUS (GLARGINE) 1 /0.01ml (100units/ml) SC ONE (07:15)
[2019-08-25 07:39] LABS: Cholesterol 143 mg/dL (< 200); HDL Cholesterol 40 mg/dL (40-59); LDL Cholesterol 86 mg/dL (< 100); Triglycerides 142 mg/dL (< 150)
[2019-08-25 07:40] LABS: Basophils # (auto) 0 10 ^3/uL (0-0.2); Basophils % (auto) 0.2 % (0.0-2.0); Eosinophils # (auto) 0 10 ^3/uL (0-0.8); Hematocrit 34.9 % (36.0-46.0); Hemoglobin 11.3 g/dL (12.2-16.2); Lymphocytes # (auto) 1.2 10 ^3/uL (0.4-5.4); Lymphocytes % (auto) 7.9 % (10.0-50.0); Mean Corpuscular Hemoglobin 29.1 pg (28.0-32.0); Mean Corpuscular Hgb Conc. 32.4 g/dL (32.0-36.0); Mean Corpuscular Volume 89.5 fL (80.0-100.0); Monocytes # (auto) 0.6 10 ^3/uL (0-1.3); Neutrophils # (auto) 13.4 10 ^3/uL (1.6-8.6); Neutrophils % (auto) 87.9 % (37.0-80.0); Platelet Count (auto) 287 10^3/uL (140-450); Red Cell Distribution Width 13.2 % (11.8-14.3); White Blood Cell 15.2 10^3/uL (4.4-10.8)
[2019-08-25] MEDS ORDERED: METOCLOPRAMIDE HCL 5MG/ml INJ 2ml VIAL IV PRN (07:45)
[2019-08-25] MEDS ORDERED: SODIUM BICARBONATE 50ML VIAL 75 ML in D5W 5% 1,000 ML IV ONE (07:45)
[2019-08-25 07:46] LABS: BUN/Creatinine Ratio 26.9; Calcium 8.6 mg/dL (8.5-10.1); Potassium 4.1 mmol/L (3.5-5.1)
[2019-08-25] MEDS ORDERED: SODIUM BICARBONATE 50ML VIAL 50 ML in SOD CHL 0.45% 1,000 ML IV SCH (08:00)
[2019-08-25] MEDS ORDERED: ACCU-CHEK COMFORT CURVE STRIP VI SCH ×2 (08:00→13:30)
[2019-08-25] MEDS ORDERED: InsuLIN REG 1unit/0.01ml Soln (100units/ml) SC SCH (08:00)
[2019-08-25] MEDS ORDERED: CLOPIDOGREL BISULFATE 75 MG TAB PO SCH (10:00)
[2019-08-25] MEDS: LOSARTAN POTASSIUM 50 MG TAB PO SCH (10:00)
[2019-08-25] MEDS: MECLIZINE HCL 25 MG TAB PO SCH (10:00)
[2019-08-25] MEDS ORDERED: METOCLOPRAMIDE 10 mg/10ml ORAL soln PO SCH (10:00)
[2019-08-25] MEDS: METOPROLOL SUCCINATE XL 50 MG TAB PO SCH (10:00)
[2019-08-25] MEDS: GABAPENTIN 300 MG CAP PO SCH ×2 (10:00→22:05)
[2019-08-25] MEDS ORDERED: PANTOPRAZOLE 40 MG TAB PO SCH (10:00)
[2019-08-25] MEDS: PANTOPRAZOLE 40 MG/10 ML VIAL INJ IV SCH ×2 (10:20→22:05)
[2019-08-25] MEDS: ONDANSETRON HCL 4 MG/2 ML VIAL IV PRN ×3 (10:26→22:42)
[2019-08-25] MEDS: METOCLOPRAMIDE HCL 5MG/ml INJ 2ml VIAL IV SCH ×2 (13:48→22:05)
[2019-08-25] MEDS: PIPERACILLIN-TAZOB 3.375GM 100 ML IV SCH ×2 (14:16→18:06)
[2019-08-25] MEDS: InsuLIN REG 1unit/0.01ml Soln (100units/ml) SC SCH ×2 (16:21→20:00)
[2019-08-25] MEDS ORDERED: cloNIDine HCL 0.1 MG TAB PO PRN (16:30)
[2019-08-25] MEDS ORDERED: cloNIDine HCL 0.1 MG TAB ONE (16:31)
[2019-08-25] MEDS: ATORVASTATIN 20 MG TAB PO SCH (18:00)
[2019-08-25 19:37] LABS: Urine Bacteria FEW /hpf (None Seen); Urine Blood 1+ /uL (Negative); Urine Mucus FEW (None Seen); Urine WBC 9 /hpf (0 - 5)
[2019-08-25 19:54] LABS: Protein, Urine 85.7 mg/dL (0.0-11.9)
[2019-08-26] VITALS (56 sets, daily range): BP systolic 78–173; BP diastolic 13–69
[2019-08-26] MEDS: InsuLIN REG 1unit/0.01ml Soln (100units/ml) SC SCH ×6 (00:25→23:58)
[2019-08-26] MEDS: PIPERACILLIN-TAZOB 3.375GM 100 ML IV SCH ×5 (00:26→23:53)
[2019-08-26] MEDS: ACCU-CHEK COMFORT CURVE STRIP VI SCH ×6 (00:26→23:55)
[2019-08-26 04:56] LABS: Basophils # (auto) 0 10 ^3/uL (0-0.2); Basophils % (auto) 0.1 % (0.0-2.0); Eosinophils # (auto) 0 10 ^3/uL (0-0.8); Hematocrit 31.4 % (36.0-46.0); Hemoglobin 10.2 g/dL (12.2-16.2); Lymphocytes # (auto) 1.9 10 ^3/uL (0.4-5.4); Lymphocytes % (auto) 10.3 % (10.0-50.0); Mean Corpuscular Hemoglobin 28.9 pg (28.0-32.0); Mean Corpuscular Hgb Conc. 32.3 g/dL (32.0-36.0); Mean Corpuscular Volume 89.4 fL (80.0-100.0); Monocytes # (auto) 0.9 10 ^3/uL (0-1.3); Monocytes % (auto) 5.2 % (0.0-12.0); Neutrophils # (auto) 15.3 10 ^3/uL (1.6-8.6); Neutrophils % (auto) 84.4 % (37.0-80.0); Platelet Count (auto) 284 10^3/uL (140-450); Red Blood Cells 3.51 10^6/uL (4.0-5.20); Red Cell Distribution Width 13.6 % (11.8-14.3); White Blood Cell 18.1 10^3/uL (4.4-10.8)
[2019-08-26 05:02] LABS: Albumin 2.6 g/dL (3.4-5.0); BUN/Creatinine Ratio 24.9; Calcium 9.1 mg/dL (8.5-10.1); Potassium 3.7 mmol/L (3.5-5.1)
[2019-08-26 05:12] LABS: Bilirubin, Total 0.4 mg/dL (0.2-1.0); Total Protein 7.3 g/dL (6.4-8.2)
[2019-08-26] MEDS: METOCLOPRAMIDE HCL 5MG/ml INJ 2ml VIAL IV SCH ×3 (05:48→22:50)
[2019-08-26] MEDS: LOSARTAN POTASSIUM 50 MG TAB PO SCH (10:00)
[2019-08-26] MEDS: METOPROLOL SUCCINATE XL 50 MG TAB PO SCH (10:00)
[2019-08-26] MEDS ORDERED: INSULIN LANTUS (GLARGINE) 1 /0.01ml (100units/ml) SC SCH (10:00)
[2019-08-26] MEDS: GABAPENTIN 300 MG CAP PO SCH ×2 (10:07→22:51)
[2019-08-26] MEDS: MECLIZINE HCL 25 MG TAB PO SCH (10:07)
[2019-08-26] MEDS: PANTOPRAZOLE 40 MG/10 ML VIAL INJ IV SCH ×2 (10:07→22:50)
[2019-08-26] MEDS: SODIUM CHLORIDE 0.9% 1,000 ML IV SCH ×2 (10:07→22:34)
[2019-08-26] MEDS ORDERED: SODIUM CHLORIDE 0.9% 1,000 ML IV ONE (17:30)
[2019-08-26] MEDS: ATORVASTATIN 20 MG TAB PO SCH (18:32)
[2019-08-27 05:00] VITALS: BP 135/64
[2019-08-27] MEDS: METOCLOPRAMIDE HCL 5MG/ml INJ 2ml VIAL IV SCH ×3 (06:11→22:15)
[2019-08-27] MEDS: SODIUM CHLORIDE 0.9% 1,000 ML IV SCH ×2 (06:11→15:45)
[2019-08-27] MEDS: ACCU-CHEK COMFORT CURVE STRIP VI SCH ×4 (06:12→23:53)
[2019-08-27] MEDS: PIPERACILLIN-TAZOB 3.375GM 100 ML IV SCH (06:12)
[2019-08-27] MEDS: InsuLIN REG 1unit/0.01ml Soln (100units/ml) SC SCH ×4 (06:21→23:59)
[2019-08-27 06:48] LABS: Basophils # (auto) 0 10 ^3/uL (0-0.2); Basophils % (auto) 0.2 % (0.0-2.0); Eosinophils # (auto) 0 10 ^3/uL (0-0.8); Hematocrit 29.6 % (36.0-46.0); Lymphocytes # (auto) 2.2 10 ^3/uL (0.4-5.4); Lymphocytes % (auto) 18.3 % (10.0-50.0); Mean Corpuscular Hgb Conc. 33.6 g/dL (32.0-36.0); Mean Corpuscular Volume 89.3 fL (80.0-100.0); Monocytes # (auto) 0.7 10 ^3/uL (0-1.3); Monocytes % (auto) 5.7 % (0.0-12.0); Neutrophils # (auto) 9.1 10 ^3/uL (1.6-8.6); Neutrophils % (auto) 75.8 % (37.0-80.0); Platelet Count (auto) 209 10^3/uL (140-450); Red Blood Cells 3.32 10^6/uL (4.0-5.20); Red Cell Distribution Width 13.3 % (11.8-14.3); White Blood Cell 12.1 10^3/uL (4.4-10.8)
[2019-08-27 07:11] LABS: Potassium 3.8 mmol/L (3.5-5.1)
[2019-08-27 07:19] LABS: Albumin 2.3 g/dL (3.4-5.0); BUN/Creatinine Ratio 15.7; Bilirubin, Total 0.7 mg/dL (0.2-1.0); Calcium 8.4 mg/dL (8.5-10.1); Total Protein 6.9 g/dL (6.4-8.2)
[2019-08-27 09:00] VITALS: BP 146/64
[2019-08-27] MEDS: PANTOPRAZOLE 40 MG/10 ML VIAL INJ IV SCH ×2 (09:55→22:15)
[2019-08-27] MEDS: MECLIZINE HCL 25 MG TAB PO SCH (09:55)
[2019-08-27] MEDS: METOPROLOL SUCCINATE XL 50 MG TAB PO SCH (09:56)
[2019-08-27] MEDS: GABAPENTIN 100 MG CAP PO SCH ×3 (09:57→22:15)
[2019-08-27] MEDS: LOSARTAN POTASSIUM 50 MG TAB PO SCH (09:57)
[2019-08-27 13:00] VITALS: BP 127/66
[2019-08-27] MEDS: PIPERACILLIN-TAZOB 2.25GM 50 ML IV SCH ×2 (14:00→22:15)
[2019-08-27 17:00] VITALS: BP 126/61
[2019-08-27] MEDS: ATORVASTATIN 20 MG TAB PO SCH (17:41)
[2019-08-27 22:52] VITALS: BP 118/45
[2019-08-28] MEDS: SODIUM CHLORIDE 0.9% 1,000 ML IV SCH (01:51)
[2019-08-28] MEDS: ACCU-CHEK COMFORT CURVE STRIP VI SCH ×4 (05:41→23:58)
[2019-08-28] MEDS: GABAPENTIN 100 MG CAP PO SCH ×3 (05:41→22:06)
[2019-08-28] MEDS: PIPERACILLIN-TAZOB 2.25GM 50 ML IV SCH ×3 (05:41→22:05)
[2019-08-28] MEDS: METOCLOPRAMIDE HCL 5MG/ml INJ 2ml VIAL IV SCH ×3 (05:42→22:05)
[2019-08-28] MEDS: InsuLIN REG 1unit/0.01ml Soln (100units/ml) SC SCH ×3 (05:46→18:26)
[2019-08-28 06:19] LABS: Basophils # (auto) 0 10 ^3/uL (0-0.2); Basophils % (auto) 0.4 % (0.0-2.0); Eosinophils # (auto) 0 10 ^3/uL (0-0.8); Eosinophils % (auto) 0.3 % (0.0-7.0); Hematocrit 29.4 % (36.0-46.0); Hemoglobin 10.1 g/dL (12.2-16.2); Lymphocytes # (auto) 2.4 10 ^3/uL (0.4-5.4); Lymphocytes % (auto) 25.8 % (10.0-50.0); Mean Corpuscular Hemoglobin 30.1 pg (28.0-32.0); Mean Corpuscular Hgb Conc. 34.4 g/dL (32.0-36.0); Mean Corpuscular Volume 87.5 fL (80.0-100.0); Monocytes # (auto) 0.5 10 ^3/uL (0-1.3); Monocytes % (auto) 5.8 % (0.0-12.0); Neutrophils # (auto) 6.3 10 ^3/uL (1.6-8.6); Neutrophils % (auto) 67.7 % (37.0-80.0); Platelet Count (auto) 212 10^3/uL (140-450); Red Blood Cells 3.36 10^6/uL (4.0-5.20); Red Cell Distribution Width 13.1 % (11.8-14.3); White Blood Cell 9.3 10^3/uL (4.4-10.8)
[2019-08-28 06:23] VITALS: BP 132/61
[2019-08-28 06:34] LABS: Albumin 2.3 g/dL (3.4-5.0); BUN/Creatinine Ratio 17.3; Calcium 8.8 mg/dL (8.5-10.1); Potassium 3.1 mmol/L (3.5-5.1)
[2019-08-28 06:36] LABS: Bilirubin, Total 0.6 mg/dL (0.2-1.0); Total Protein 6.9 g/dL (6.4-8.2)
[2019-08-28] MEDS: ONDANSETRON HCL 4 MG/2 ML VIAL IV PRN (08:42)
[2019-08-28] MEDS ORDERED: POTASSIUM CHL 20MEQ/100ML 100 ML IV SCH (08:45)
[2019-08-28] MEDS: PANTOPRAZOLE 40 MG/10 ML VIAL INJ IV SCH ×2 (08:52→22:05)
[2019-08-28] MEDS: LOSARTAN POTASSIUM 50 MG TAB PO SCH (08:54)
[2019-08-28] MEDS: MECLIZINE HCL 25 MG TAB PO SCH (08:54)
[2019-08-28] MEDS: METOPROLOL SUCCINATE XL 50 MG TAB PO SCH (08:55)
[2019-08-28 09:00] VITALS: BP 113/64
[2019-08-28] MEDS ORDERED: POTASSIUM CHLORIDE 60 MEQ, LIDOCAINE 1% (LOCAL ANESTH.) 6 ML in SODIUM CHL 0.9% 500 ML IV ONE (09:45)
[2019-08-28] MEDS: SODIUM BICARBONATE 50ML VIAL 75 ML in SOD CHL 0.45% 1,000 ML IV SCH (10:16)
[2019-08-28 13:00] VITALS: BP 127/66
[2019-08-28] MEDS ORDERED: CLOPIDOGREL BISULFATE 75 MG TAB PO ONE (16:45)
[2019-08-28] MEDS ORDERED: ASPirin 81 mg TAB PO ONE (16:45)
[2019-08-28 17:00] VITALS: BP 132/65
[2019-08-28] MEDS: ATORVASTATIN 20 MG TAB PO SCH (17:45)
[2019-08-28 21:44] VITALS: BP 129/64
[2019-08-29] MEDS: InsuLIN REG 1unit/0.01ml Soln (100units/ml) SC SCH ×5 (00:04→23:36)
[2019-08-29] MEDS: SODIUM BICARBONATE 50ML VIAL 75 ML in SOD CHL 0.45% 1,000 ML IV SCH ×2 (03:53→13:25)
[2019-08-29 04:44] VITALS: BP 148/60
[2019-08-29] MEDS: METOCLOPRAMIDE HCL 5MG/ml INJ 2ml VIAL IV SCH ×3 (05:48→21:24)
[2019-08-29] MEDS: ACCU-CHEK COMFORT CURVE STRIP VI SCH ×4 (05:49→23:35)
[2019-08-29] MEDS: GABAPENTIN 100 MG CAP PO SCH ×3 (05:49→21:25)
[2019-08-29] MEDS: PIPERACILLIN-TAZOB 2.25GM 50 ML IV SCH ×3 (05:49→21:25)
[2019-08-29 06:59] LABS: Basophils # (auto) 0 10 ^3/uL (0-0.2); Basophils % (auto) 0.2 % (0.0-2.0); Eosinophils # (auto) 0.2 10 ^3/uL (0-0.8); Eosinophils % (auto) 1.6 % (0.0-7.0); Hematocrit 28.6 % (36.0-46.0); Hemoglobin 9.8 g/dL (12.2-16.2); Lymphocytes # (auto) 1.8 10 ^3/uL (0.4-5.4); Lymphocytes % (auto) 19.5 % (10.0-50.0); Mean Corpuscular Hemoglobin 30.3 pg (28.0-32.0); Mean Corpuscular Hgb Conc. 34.2 g/dL (32.0-36.0); Mean Corpuscular Volume 88.5 fL (80.0-100.0); Monocytes # (auto) 0.5 10 ^3/uL (0-1.3); Monocytes % (auto) 5.8 % (0.0-12.0); Neutrophils # (auto) 6.8 10 ^3/uL (1.6-8.6); Neutrophils % (auto) 72.9 % (37.0-80.0); Platelet Count (auto) 193 10^3/uL (140-450); Red Blood Cells 3.23 10^6/uL (4.0-5.20); Red Cell Distribution Width 13.2 % (11.8-14.3); White Blood Cell 9.4 10^3/uL (4.4-10.8)
[2019-08-29 07:18] LABS: Potassium 3.9 mmol/L (3.5-5.1)
[2019-08-29 07:24] LABS: Calcium 8.8 mg/dL (8.5-10.1)
[2019-08-29 09:00] VITALS: BP 162/79
[2019-08-29] MEDS: ASPirin 81 mg TAB PO SCH (10:00)
[2019-08-29] MEDS: PANTOPRAZOLE 40 MG/10 ML VIAL INJ IV SCH ×2 (10:10→21:24)
[2019-08-29] MEDS: LOSARTAN POTASSIUM 50 MG TAB PO SCH (10:10)
[2019-08-29] MEDS: METOPROLOL SUCCINATE XL 50 MG TAB PO SCH (10:12)
[2019-08-29] MEDS: MECLIZINE HCL 25 MG TAB PO SCH (10:12)
[2019-08-29] MEDS: CLOPIDOGREL BISULFATE 75 MG TAB PO SCH (10:14)
[2019-08-29 13:00] VITALS: BP 121/66
[2019-08-29 17:00] VITALS: BP 140/56
[2019-08-29] MEDS: ATORVASTATIN 20 MG TAB PO SCH (18:20)
[2019-08-29] MEDS ORDERED: MIRTAZAPINE 30 MG TAB PO SCH ×2 (22:00)
[2019-08-29 22:07] VITALS: BP 133/44
[2019-08-30] MEDS: SODIUM BICARBONATE 50ML VIAL 75 ML in SOD CHL 0.45% 1,000 ML IV SCH ×2 (03:45→18:05)
[2019-08-30] MEDS: METOCLOPRAMIDE HCL 5MG/ml INJ 2ml VIAL IV SCH ×2 (05:28→13:47)
[2019-08-30] MEDS: PIPERACILLIN-TAZOB 2.25GM 50 ML IV SCH ×2 (05:28→13:47)
[2019-08-30] MEDS: GABAPENTIN 100 MG CAP PO SCH ×2 (05:28→13:46)
[2019-08-30] MEDS: ACCU-CHEK COMFORT CURVE STRIP VI SCH ×3 (05:28→18:07)
[2019-08-30] MEDS: InsuLIN REG 1unit/0.01ml Soln (100units/ml) SC SCH ×3 (05:29→18:36)
[2019-08-30 05:50] VITALS: BP 108/52
[2019-08-30 06:48] LABS: Basophils # (auto) 0 10 ^3/uL (0-0.2); Basophils % (auto) 0.3 % (0.0-2.0); Eosinophils # (auto) 0.2 10 ^3/uL (0-0.8); Hemoglobin 9.9 g/dL (12.2-16.2); Lymphocytes # (auto) 2.7 10 ^3/uL (0.4-5.4); Lymphocytes % (auto) 24.7 % (10.0-50.0); Mean Corpuscular Hemoglobin 30.3 pg (28.0-32.0); Mean Corpuscular Hgb Conc. 34.1 g/dL (32.0-36.0); Mean Corpuscular Volume 88.7 fL (80.0-100.0); Monocytes # (auto) 0.8 10 ^3/uL (0-1.3); Monocytes % (auto) 7.3 % (0.0-12.0); Neutrophils # (auto) 7.2 10 ^3/uL (1.6-8.6); Neutrophils % (auto) 65.7 % (37.0-80.0); Platelet Count (auto) 232 10^3/uL (140-450); Red Blood Cells 3.27 10^6/uL (4.0-5.20); Red Cell Distribution Width 12.8 % (11.8-14.3)
[2019-08-30 07:02] LABS: Calcium 8.5 mg/dL (8.5-10.1)
[2019-08-30 09:00] VITALS: BP 123/58
[2019-08-30] MEDS: PANTOPRAZOLE 40 MG/10 ML VIAL INJ IV SCH (09:47)
[2019-08-30] MEDS: CLOPIDOGREL BISULFATE 75 MG TAB PO SCH (09:47)
[2019-08-30] MEDS: ASPirin 81 mg TAB PO SCH (09:47)
[2019-08-30] MEDS: MECLIZINE HCL 25 MG TAB PO SCH (09:47)
[2019-08-30] MEDS: LOSARTAN POTASSIUM 50 MG TAB PO SCH (09:48)
[2019-08-30] MEDS: METOPROLOL SUCCINATE XL 50 MG TAB PO SCH (09:49)
[2019-08-30 13:00] VITALS: BP 139/60
[2019-08-30 17:00] VITALS: BP 129/60
[2019-08-30] MEDS ORDERED: POTASSIUM CHL 20 Meq TABLET PO ONE (17:30)
[2019-08-30 18:09] VITALS: BP 123/58
[2019-08-30] MEDS: ATORVASTATIN 20 MG TAB PO SCH (18:09)
== END 2019-08-30 19:10 | DRG 871 ==
LOC: ER 23:01 → TELE 23:02 → ICU WEST 08-25 11:27 → TELE-EAST 08-26 17:45
PROVIDERS: ADMIT Hospitalist; ATTEND Family Medicine
DX: A41.9 Sepsis, unspecified organism (principal); E11.10 Type 2 diabetes mellitus with ketoacidosis without coma; N17.0 Acute kidney failure with tubular necrosis; E87.1 Hypo-osmolality and hyponatremia; R57.9 Shock, unspecified; R45.851 Suicidal ideations; K31.84 Gastroparesis; E87.5 Hyperkalemia; E11.65 Type 2 diabetes mellitus with hyperglycemia; N18.3 Chronic kidney disease, stage 3 (moderate); E11.40 Type 2 diabetes mellitus with diabetic neuropathy, unspecified; K76.0 Fatty (change of) liver, not elsewhere classified; I25.10 Atherosclerotic heart disease of native coronary artery without angina pectoris; E66.01 Morbid (severe) obesity due to excess calories; E87.6 Hypokalemia; E11.22 Type 2 diabetes mellitus with diabetic chronic kidney disease; E11.43 Type 2 diabetes mellitus with diabetic autonomic (poly)neuropathy; E78.00 Pure hypercholesterolemia, unspecified; E78.5 Hyperlipidemia, unspecified; I12.9 Hypertensive chronic kidney disease with stage 1 through stage 4 chronic kidney disease, or unspecified chronic kidney disease; K57.30 Diverticulosis of large intestine without perforation or abscess without bleeding; Z79.899 Other long term (current) drug therapy; Z82.49 Family history of ischemic heart disease and other diseases of the circulatory system; Z90.49 Acquired absence of other specified parts of digestive tract; Z83.3 Family history of diabetes mellitus; Z95.5 Presence of coronary angioplasty implant and graft
CPT/HCPCS: 36415; 36600; 51702; 71045; 74176; 76775; 80048; 80053; 80061; 81001; 82010; 82570; 82805; 82962; 83036; 83605; 83735; 83880; 84156; 84300; 84443; 84484; 85025; 85610; 85730; 87040; 87081; 87086; 87804; 93005; 96365; 96366; 96367; 96375; 97163; C9113; G0378; J0696; J1815; J2001; J2405; J2543